=== PATIENT | female | born 1980 | race Caucasian/White ===

== ENCOUNTER 2018-03-02 18:49 | Emergency (ER) | payer MEDICAID ==
[~2018-03-02] VITALS: Ht 160 cm; Wt 94.3 kg
[2018-03-02 19:01] VITALS: Ht 160 cm; Wt 94.3 kg
[2018-03-03 00:32] VITALS: BP 113/72
== END 2018-03-03 00:32 | disposition home or self-care (01) ==
LOC: ED 18:49
DX: N83.201 Unspecified ovarian cyst, right side (principal); M94.0 Chondrocostal junction syndrome [Tietze]
CPT/HCPCS: J1885